=== PATIENT | male | born 1955 | race Caucasian/White ===

== ENCOUNTER 2016-11-16 17:25 | Emergency (ER) | payer OTHER ==
[~2016-11-16] VITALS: Ht 172.7 cm; Wt 51.3 kg
[2016-11-16 18:52] LABS: Basophils # (auto) 0 uL; Eosinophils # (auto) 0 uL; Hematocrit 43.7 % (41.0-53.0); Hemoglobin 14.5 g/dL (13.5-17.5); Lymphocytes # (auto) 0.8 uL; Lymphocytes % (auto) 5.4 % (10.0-50.0); Mean Corpuscular Hemoglobin 29.6 pg (28.0-32.0); Mean Corpuscular Hgb Conc. 33.1 g/dL (32.0-36.0); Mean Corpuscular Volume 89.6 fL (80.0-100.0); Mean Platelet Volume 8.3 fL (7.4-10.4); Monocytes # (auto) 0.5 uL; Monocytes % (auto) 3.5 % (0.0-12.0); Neutrophils # (auto) 12.8 uL; Neutrophils % (auto) 91.1 % (37.0-80.0); Platelet Count (auto) 292 10^3/uL (140-450); Red Cell Distribution Width 13.9 % (11.6-16.0); White Blood Cell 14.1 10^3/uL (4.4-10.8)
[2016-11-16 19:08] LABS: Albumin 4.1 g/dL (3.4-5.0); BUN/Creatinine Ratio 14.4; Calcium 8.7 mg/dL (8.5-10.1); Potassium 3.7 mmol/L (3.5-5.1)
[2016-11-16 19:11] LABS: Total Protein 7.4 g/dL (6.4-8.2)
[2016-11-16 20:07] LABS: Urine Bilirubin Negative (Negative); Urine Color Yellow (Yellow); Urine Glucose Normal (Normal); Urine Ketone Negative (Negative); Urine Nitrite Negative (Negative); Urine RBC 8 /hpf (0 - 3); Urine Squamous Epithelial Cell FEW /hpf (<5); Urine Urobilinogen Normal (Negative)
[2016-11-16 20:38] LABS: Urine Blood 1+ /uL (Negative)
[2016-11-16 22:30] VITALS: BP 115/74
[2016-11-16] MEDS ORDERED: MORPHINE SULF INJ 2 MG/ML SYRINGE 1ML IV ONE (22:30)
== END 2016-11-16 23:12 | disposition home or self-care (01) ==
LOC: ER 17:38
DX: R33.9 Retention of urine, unspecified (principal); G89.29 Other chronic pain; M54.9 Dorsalgia, unspecified; G43.909 Migraine, unspecified, not intractable, without status migrainosus
CPT/HCPCS: 36415; 51702; 80053; 81001; 85025; 93005; 96374; 99285; J2270

== ENCOUNTER 2017-03-20 14:30 | Inpatient (IN) | payer OTHER ==
[~2017-03-20] VITALS: Ht 170.2 cm; Wt 65.8 kg
[2017-03-20] MEDS ORDERED: LIDOCAINE 1% HCL (LOCAL ANESTH.) INJ 20ML MDV ID ONE (16:15)
[2017-03-20 16:47] LABS: Basophils # (auto) 0 uL; Basophils % (auto) 0.3 % (0.0-2.0); CONDITION Y; Eosinophils # (auto) 0 uL; Eosinophils % (auto) 0.1 % (0.0-7.0); Hematocrit 41.7 % (41.0-53.0); Hemoglobin 13.9 g/dL (13.5-17.5); Lymphocytes # (auto) 0.9 uL; Lymphocytes % (auto) 5.7 % (10.0-50.0); Mean Corpuscular Hemoglobin 30.1 pg (28.0-32.0); Mean Corpuscular Hgb Conc. 33.3 g/dL (32.0-36.0); Mean Corpuscular Volume 90.6 fL (80.0-100.0); Mean Platelet Volume 8.7 fL (7.4-10.4); Monocytes # (auto) 0.7 uL; Monocytes % (auto) 4.3 % (0.0-12.0); Neutrophils # (auto) 13.6 uL; Neutrophils % (auto) 89.6 % (37.0-80.0); Platelet Count (auto) 206 10^3/uL (140-450); Red Cell Distribution Width 13.4 % (11.6-16.0); White Blood Cell 15.2 10^3/uL (4.4-10.8)
[2017-03-20 16:57] LABS: Albumin 3.4 g/dL (3.4-5.0); Alkaline Phosphatase 77 U/L (45-117); Anion Gap 6 (5-15); Aspartate Aminotransferase 23 U/L (15-37); BUN/Creatinine Ratio 16.3; Bilirubin, Total 1.7 mg/dL (0.2-1.0); Blood Urea Nitrogen 14 mg/dL (7-18); Calcium 8.3 mg/dL (8.5-10.1); Carbon Dioxide 26 mmol/L (21-32); Chloride 104 mmol/L (98-107); GFR African American 117 mL/min; GFR Non-African American 97 mL/min; Glucose 107 mg/dL (74-106); Potassium 3.8 mmol/L (3.5-5.1); Sodium 136 mmol/L (136-145); Total Protein 6.5 g/dL (6.4-8.2)
[2017-03-20] MEDS ORDERED: MORPHINE SULFATE 4 MG/ML SYRG IV ONE (18:15)
[2017-03-20] MEDS ORDERED: ONDANSETRON HCL 4 MG/2 ML VIAL IV ONE (18:15)
[2017-03-20] MEDS ORDERED: NITROGLYCERIN 0.4 MG SL TAB SL PRN (19:00)
[2017-03-20] MEDS ORDERED: MORPHINE SULF INJ 2 MG/ML SYRINGE 1ML IV PRN (19:00)
[2017-03-20 19:24] LABS: INR 1.05 (0.9-1.15); Prothrombin Time 11.4 sec (9.37-12.3)
[2017-03-20] MEDS ORDERED: LORazepam 0.5 MG TAB PO PRN (20:45)
[2017-03-20 21:20] VITALS: BP 107/56
[2017-03-20] MEDS ORDERED: SODIUM CHLORIDE 0.9% 1,000 ML IV SCH (21:30)
[2017-03-21] MEDS ORDERED: PANTOPRAZOLE 40 MG TAB PO SCH (10:00)
[2017-03-21] MEDS ORDERED: ENOXAPARIN SOD 40 MG/0.4 ML SYRINGE SC SCH (10:00)
== END 2017-03-20 21:14 | disposition left against medical advice (07) | DRG 312 ==
LOC: EDBD 14:30 → ER 14:42 → TELE 14:43
PROVIDERS: ADMIT Nurse Practitioner Acute Care; ATTEND Nurse Practitioner Acute Care
DX: R55 Syncope and collapse (principal); I70.0 Atherosclerosis of aorta; D72.829 Elevated white blood cell count, unspecified; S01.81XA Laceration without foreign body of other part of head, initial encounter; M54.9 Dorsalgia, unspecified; G89.29 Other chronic pain
CPT/HCPCS: 12011; 36415; 70450; 71010; 74176; 80053; 82962; 83735; 84484; 85025; 85379; 85610; 85730; 93005; 94761; 96374; 96375; J2001; J2405

== ENCOUNTER 2022-08-26 12:22 | Inpatient (IN) | payer OTHER ==
[~2022-08-26] VITALS: Ht 170.2 cm; Wt 58.3 kg
[2022-08-26 13:04] LABS: Basophils # (auto) 0 10 ^3/uL (0-0.2); Basophils % (auto) 0.2 % (0.0-2.0); Eosinophils # (auto) 0 10 ^3/uL (0-0.8); Eosinophils % (auto) 0.1 % (0.0-7.0); Hemoglobin 13.5 g/dL (13.5-17.5); Lymphocytes # (auto) 0.7 10 ^3/uL (0.4-5.4); Lymphocytes % (auto) 5.1 % (10.0-50.0); Mean Corpuscular Hemoglobin 29.3 pg (28.0-32.0); Monocytes # (auto) 1.4 10 ^3/uL (0-1.3); Monocytes % (auto) 10.7 % (0.0-12.0); Neutrophils % (auto) 83.9 % (37.0-80.0); Nucleated Red Blood Cells % 0.1 %; Red Cell Distribution Width 13.7 % (11.8-14.3); White Blood Cell 13.1 10^3/uL (4.4-10.8)
[2022-08-26 13:20] LABS: Albumin 3.1 g/dL (3.4-5.0); Calcium 9.4 mg/dL (8.5-10.1); Potassium 4.4 mmol/L (3.5-5.1)
[2022-08-26 13:23] LABS: Bilirubin, Total 1.7 mg/dL (0.2-1.0); Total Protein 6.8 g/dL (6.4-8.2)
[2022-08-26] MEDS: SODIUM CHLORIDE 0.9% 1,000 ML IV SCH (14:15)
[2022-08-26] MEDS ORDERED: IOHEXOL 350 MG/ML 100ML IJ ONE (14:39)
[2022-08-26] MEDS ORDERED: cefTRIAXone 1GM/50ML D5W 50 ML IV ONE (14:45)
[2022-08-26] MEDS ORDERED: PANTOPRAZOLE 40 MG/10 ML VIAL INJ IV ONE (14:45)
[2022-08-26 15:02] LABS: Cholesterol 182 mg/dL (< 200); Triglycerides 64 mg/dL (< 150)
[2022-08-26 15:05] LABS: HDL Cholesterol 53 mg/dL (40-59); LDL Cholesterol 123 mg/dL (< 100)
[2022-08-26] MEDS ORDERED: MORP15TA PO (15:07)
[2022-08-26] MEDS ORDERED: MORP1TAB14 PO (15:07)
[2022-08-26 15:45] LABS: Urine Specific Gravity 1.027 (1.001-1.035)
[2022-08-26] MEDS ORDERED: MORPHINE SULFATE 4 MG/ML SYR/VIAL IV ONE (15:45)
[2022-08-26] MEDS ORDERED: ONDANSETRON HCL 4 MG/2 ML VIAL IV ONE (15:45)
[2022-08-26 15:46] LABS: Urine Blood Normal /uL (Negative)
[2022-08-26] MEDS ORDERED: KETOROLAC TROMETH 30 MG/ML 1ML VIAL IV ONE (18:15)
[2022-08-26] MEDS ORDERED: HYDROmorphone HCL 2 MG/ML VL/or syr IV ONE (18:15)
[2022-08-26 22:12] VITALS: BP 96/58
[2022-08-26 22:21] VITALS: BP 96/58
[2022-08-26 22:22] VITALS: BP 96/58
[2022-08-26] MEDS: ASCORBIC ACID 500 MG TAB PO SCH (23:22)
[2022-08-27] MEDS: MORPHINE SULFATE 4 MG/ML SYR/VIAL IV PRN ×2 (04:19→10:53)
[2022-08-27] MEDS: SODIUM CHLORIDE 0.9% 1,000 ML IV SCH ×2 (04:33→18:25)
[2022-08-27 05:00] VITALS: BP 115/68
[2022-08-27] MEDS ORDERED: SUMAtriptan SUCCINATE 25 MG TAB PO ONE (05:00)
[2022-08-27 06:51] LABS: Basophils # (auto) 0 10 ^3/uL (0-0.2); Basophils % (auto) 0.4 % (0.0-2.0); Eosinophils # (auto) 0 10 ^3/uL (0-0.8); Eosinophils % (auto) 0.1 % (0.0-7.0); Hematocrit 36.3 % (41.0-53.0); Hemoglobin 12.2 g/dL (13.5-17.5); Lymphocytes # (auto) 0.6 10 ^3/uL (0.4-5.4); Mean Corpuscular Hemoglobin 30.7 pg (28.0-32.0); Mean Corpuscular Hgb Conc. 33.7 g/dL (32.0-36.0); Mean Corpuscular Volume 90.9 fL (80.0-100.0); Monocytes # (auto) 1.5 10 ^3/uL (0-1.3); Monocytes % (auto) 12.2 % (0.0-12.0); Neutrophils % (auto) 82.3 % (37.0-80.0); Red Blood Cells 3.99 10^6/uL (4.5-5.90); Red Cell Distribution Width 13.8 % (11.8-14.3); White Blood Cell 12.2 10^3/uL (4.4-10.8)
[2022-08-27 07:03] LABS: Albumin 2.8 g/dL (3.4-5.0); Calcium 8.9 mg/dL (8.5-10.1); Potassium 4.5 mmol/L (3.5-5.1)
[2022-08-27 07:09] LABS: BUN/Creatinine Ratio 22.3; Bilirubin, Total 1.6 mg/dL (0.2-1.0); Total Protein 5.9 g/dL (6.4-8.2)
[2022-08-27 08:00] VITALS: BP 119/62
[2022-08-27 09:00] VITALS: BP 112/69
[2022-08-27] MEDS: ENOXAPARIN SOD 40 MG/0.4 ML SYRINGE SC SCH (10:04)
[2022-08-27] MEDS: cefTRIAXone 1GM/50ML D5W 50 ML IV SCH (10:04)
[2022-08-27] MEDS: ZINC SULFATE 220mg CAP or TAB PO SCH (10:04)
[2022-08-27] MEDS: MULTIPLE VITAMIN TAB PO SCH (10:04)
[2022-08-27] MEDS: PANTOPRAZOLE 40 MG/10 ML VIAL INJ IV SCH (10:04)
[2022-08-27] MEDS: ASCORBIC ACID 500 MG TAB PO SCH ×2 (10:04→22:50)
[2022-08-27 13:00] VITALS: BP 119/62
[2022-08-27 15:22] LABS: INR 1.06 (0.9-1.15); Partial Thromboplastin Time 31.4 sec (24.6-33.4)
[2022-08-27] MEDS: metroNIDAZOLE 500MG/100ML 100 ML IV SCH ×2 (16:29→22:53)
[2022-08-27 17:00] VITALS: BP 100/49
[2022-08-27] MEDS: HYDROmorphone HCL 2 MG/ML VL/or syr IV SCH (18:25)
[2022-08-27 22:00] VITALS: BP 123/68
[2022-08-28] MEDS: HYDROmorphone HCL 2 MG/ML VL/or syr IV SCH ×4 (00:45→19:19)
[2022-08-28] MEDS ORDERED: TEMAZEPAM 15 MG CAP PO ONE (01:45)
[2022-08-28 05:00] VITALS: BP 97/69
[2022-08-28] MEDS: SODIUM CHLORIDE 0.9% 1,000 ML IV SCH ×2 (05:37→22:36)
[2022-08-28] MEDS: metroNIDAZOLE 500MG/100ML 100 ML IV SCH ×3 (08:49→22:31)
[2022-08-28 08:59] VITALS: BP_SYST 107; BP_SYST 113; BP_DIAS 52; BP_DIAS 68
[2022-08-28] MEDS: cefTRIAXone 1GM/50ML D5W 50 ML IV SCH (09:14)
[2022-08-28] MEDS: PANTOPRAZOLE 40 MG/10 ML VIAL INJ IV SCH (10:00)
[2022-08-28] MEDS: ASCORBIC ACID 500 MG TAB PO SCH ×2 (10:37→22:31)
[2022-08-28] MEDS: KETOROLAC TROMETH 30 MG/ML 1ML VIAL IV PRN (10:37)
[2022-08-28] MEDS: MULTIPLE VITAMIN TAB PO SCH (10:37)
[2022-08-28] MEDS: ZINC SULFATE 220mg CAP or TAB PO SCH (10:37)
[2022-08-28] MEDS: ENOXAPARIN SOD 40 MG/0.4 ML SYRINGE SC SCH (10:47)
[2022-08-28 13:00] VITALS: BP 127/79
[2022-08-28] MEDS: ALPRAZolam 0.5 MG TAB PO SCH ×2 (14:11→22:31)
[2022-08-28 17:00] VITALS: BP 102/58
[2022-08-28 22:00] VITALS: BP_SYST 116; BP_SYST 129; BP_DIAS 67; BP_DIAS 79
[2022-08-29] MEDS: HYDROmorphone HCL 2 MG/ML VL/or syr IV SCH ×4 (00:53→18:39)
[2022-08-29] MEDS: KETOROLAC TROMETH 30 MG/ML 1ML VIAL IV PRN ×2 (04:44→21:35)
[2022-08-29 05:00] VITALS: BP 119/72
[2022-08-29] MEDS: ALPRAZolam 0.5 MG TAB PO SCH ×3 (06:00→21:48)
[2022-08-29] MEDS: metroNIDAZOLE 500MG/100ML 100 ML IV SCH ×3 (06:38→21:35)
[2022-08-29 08:06] VITALS: BP 107/58
[2022-08-29] MEDS: cefTRIAXone 1GM/50ML D5W 50 ML IV SCH (09:27)
[2022-08-29] MEDS: ENOXAPARIN SOD 40 MG/0.4 ML SYRINGE SC SCH (09:38)
[2022-08-29] MEDS: ZINC SULFATE 220mg CAP or TAB PO SCH (09:38)
[2022-08-29] MEDS: MULTIPLE VITAMIN TAB PO SCH (09:38)
[2022-08-29] MEDS: PANTOPRAZOLE 40 MG/10 ML VIAL INJ IV SCH (09:38)
[2022-08-29] MEDS: ASCORBIC ACID 500 MG TAB PO SCH ×2 (09:39→21:35)
[2022-08-29] MEDS ORDERED: LOPERAMIDE HCL 2 MG CAP/TAB PO ONE (12:00)
[2022-08-29 12:10] VITALS: BP 137/75
[2022-08-29 16:32] VITALS: BP 110/64
[2022-08-29] MEDS: SODIUM CHLORIDE 0.9% 1,000 ML IV SCH (18:39)
[2022-08-29 22:00] VITALS: BP 111/57
[2022-08-30] MEDS: HYDROmorphone HCL 2 MG/ML VL/or syr IV SCH ×5 (00:24→19:26)
[2022-08-30] MEDS: SODIUM CHLORIDE 0.9% 1,000 ML IV SCH ×2 (04:03→14:24)
[2022-08-30 05:00] VITALS: BP 108/55
[2022-08-30] MEDS: ALPRAZolam 0.5 MG TAB PO SCH (06:00)
[2022-08-30] MEDS: metroNIDAZOLE 500MG/100ML 100 ML IV SCH ×3 (06:32→22:04)
[2022-08-30] MEDS: cefTRIAXone 1GM/50ML D5W 50 ML IV SCH (09:21)
[2022-08-30 10:01] VITALS: BP 94/53
[2022-08-30] MEDS: ASCORBIC ACID 500 MG TAB PO SCH ×2 (10:43→22:04)
[2022-08-30] MEDS: ZINC SULFATE 220mg CAP or TAB PO SCH (10:44)
[2022-08-30] MEDS: ENOXAPARIN SOD 40 MG/0.4 ML SYRINGE SC SCH (10:44)
[2022-08-30] MEDS: PANTOPRAZOLE 40 MG/10 ML VIAL INJ IV SCH (10:44)
[2022-08-30] MEDS: MULTIPLE VITAMIN TAB PO SCH (10:44)
[2022-08-30] MEDS: LOPERAMIDE HCL 2 MG CAP/TAB PO PRN (10:51)
[2022-08-30 12:50] VITALS: BP 112/64
[2022-08-30 17:00] VITALS: BP_SYST 113; BP_SYST 139; BP_DIAS 59; BP_DIAS 76
[2022-08-30 22:00] VITALS: BP 103/57
[2022-08-30] MEDS: KETOROLAC TROMETH 30 MG/ML 1ML VIAL IV PRN (22:04)
[2022-08-31] VITALS (10 sets, daily range): BP systolic 99–119; BP diastolic 46–75
[2022-08-31] MEDS: KETOROLAC TROMETH 30 MG/ML 1ML VIAL IV PRN ×3 (04:50→21:40)
[2022-08-31] MEDS: HYDROmorphone HCL 2 MG/ML VL/or syr IV SCH ×3 (06:12→17:47)
[2022-08-31] MEDS: metroNIDAZOLE 500MG/100ML 100 ML IV SCH ×3 (06:13→21:40)
[2022-08-31] MEDS: PANTOPRAZOLE 40 MG/10 ML VIAL INJ IV SCH (08:54)
[2022-08-31] MEDS: cefTRIAXone 1GM/50ML D5W 50 ML IV SCH (08:54)
[2022-08-31] MEDS: ENOXAPARIN SOD 40 MG/0.4 ML SYRINGE SC SCH (08:54)
[2022-08-31] MEDS: MULTIPLE VITAMIN TAB PO SCH (08:55)
[2022-08-31] MEDS: ASCORBIC ACID 500 MG TAB PO SCH (08:55)
[2022-08-31] MEDS: SODIUM CHLORIDE 0.9% 1,000 ML IV SCH ×2 (08:58→22:57)
[2022-08-31] MEDS: ZINC SULFATE 220mg CAP or TAB PO SCH (10:05)
[2022-08-31 10:18] LABS: Basophils # (auto) 0 10 ^3/uL (0-0.2); Basophils % (auto) 0.5 % (0.0-2.0); Eosinophils # (auto) 0 10 ^3/uL (0-0.8); Eosinophils % (auto) 0.4 % (0.0-7.0); Hematocrit 35.8 % (41.0-53.0); Hemoglobin 12.2 g/dL (13.5-17.5); Lymphocytes # (auto) 0.7 10 ^3/uL (0.4-5.4); Lymphocytes % (auto) 7.7 % (10.0-50.0); Mean Corpuscular Hgb Conc. 34.1 g/dL (32.0-36.0); Mean Corpuscular Volume 88.1 fL (80.0-100.0); Monocytes # (auto) 1.1 10 ^3/uL (0-1.3); Monocytes % (auto) 11.7 % (0.0-12.0); Neutrophils # (auto) 7.3 10 ^3/uL (1.6-8.6); Neutrophils % (auto) 79.7 % (37.0-80.0); Red Blood Cells 4.06 10^6/uL (4.5-5.90); Red Cell Distribution Width 13.8 % (11.8-14.3); White Blood Cell 9.2 10^3/uL (4.4-10.8)
[2022-08-31 11:26] LABS: INR 1.18 (0.9-1.15); Partial Thromboplastin Time 28.4 sec (24.6-33.4)
[2022-08-31] MEDS: Ensure HIGH Protein Chocolate 8oz Bottle PO SCH ×2 (12:00→17:47)
[2022-08-31] MEDS ORDERED: GELATIN 1 SPONGE SIZE 100 TOP ONE (12:52)
[2022-08-31] MEDS ORDERED: LIDOCAINE 2% (LOCAL ANESTH.) PF 5ml SDV ONE (12:52)
[2022-08-31] MEDS ORDERED: fentaNYL CITRATE 100 MCG/2 ML VL IV ONE (13:15)
[2022-08-31] MEDS ORDERED: MIDAZOLAM HCL 2MG/2ML 2ml VIAL (1mg/ml) IV ONE (13:15)
[2022-08-31 14:46] LABS: Hepatitis A Ab IgM Negative; Hepatitis C Antibody Negative (Negative)
[2022-08-31 14:47] LABS: Hepatitis B Core IgM Negative
[2022-08-31] MEDS ORDERED: SUMA100T2 PO (15:09)
[2022-08-31] MEDS ORDERED: MORP1TAB13 PO (15:09)
[2022-08-31] MEDS ORDERED: LIDO5PAD8 EX (15:09)
[2022-08-31] MEDS ORDERED: TIZA4TAB9 PO (15:09)
[2022-08-31] MEDS: LOPERAMIDE HCL 2 MG CAP/TAB PO PRN (17:54)
[2022-08-31] MEDS: ALPRAZolam 0.25 MG TAB PO PRN ×2 (20:37)
[2022-09-01] MEDS: HYDROmorphone HCL 2 MG/ML VL/or syr IV SCH ×3 (00:03→12:00)
[2022-09-01] MEDS: KETOROLAC TROMETH 30 MG/ML 1ML VIAL IV PRN ×2 (03:48→09:51)
[2022-09-01 05:00] VITALS: BP 118/62
[2022-09-01] MEDS: metroNIDAZOLE 500MG/100ML 100 ML IV SCH ×2 (06:00→14:00)
[2022-09-01 07:27] LABS: Albumin 2.3 g/dL (3.4-5.0); Calcium 8.4 mg/dL (8.5-10.1); Potassium 3.8 mmol/L (3.5-5.1)
[2022-09-01 07:31] LABS: Basophils # (auto) 0 10 ^3/uL (0-0.2); Basophils % (auto) 0.4 % (0.0-2.0); Bilirubin, Total 1.2 mg/dL (0.2-1.0); Eosinophils # (auto) 0.1 10 ^3/uL (0-0.8); Eosinophils % (auto) 0.5 % (0.0-7.0); Hematocrit 35.1 % (41.0-53.0); Hemoglobin 11.9 g/dL (13.5-17.5); Lymphocytes # (auto) 0.7 10 ^3/uL (0.4-5.4); Lymphocytes % (auto) 6.8 % (10.0-50.0); Mean Corpuscular Hemoglobin 31.3 pg (28.0-32.0); Mean Corpuscular Hgb Conc. 33.8 g/dL (32.0-36.0); Mean Corpuscular Volume 92.5 fL (80.0-100.0); Monocytes # (auto) 1.4 10 ^3/uL (0-1.3); Monocytes % (auto) 12.7 % (0.0-12.0); Neutrophils # (auto) 8.6 10 ^3/uL (1.6-8.6); Neutrophils % (auto) 79.6 % (37.0-80.0); Red Blood Cells 3.79 10^6/uL (4.5-5.90); Red Cell Distribution Width 14.3 % (11.8-14.3); Total Protein 5.2 g/dL (6.4-8.2); White Blood Cell 10.8 10^3/uL (4.4-10.8)
[2022-09-01] MEDS: Ensure HIGH Protein Chocolate 8oz Bottle PO SCH ×2 (08:30→14:11)
[2022-09-01 09:00] VITALS: BP 96/57
[2022-09-01] MEDS: cefTRIAXone 1GM/50ML D5W 50 ML IV SCH (09:50)
[2022-09-01] MEDS: ENOXAPARIN SOD 40 MG/0.4 ML SYRINGE SC SCH (09:51)
[2022-09-01] MEDS: MULTIPLE VITAMIN TAB PO SCH (09:51)
[2022-09-01] MEDS: PANTOPRAZOLE 40 MG/10 ML VIAL INJ IV SCH (09:51)
[2022-09-01 12:00] VITALS: BP 100/61
[2022-09-01] MEDS ORDERED: METR500T PO (12:06)
[2022-09-01] MEDS ORDERED: LEVO500T31 PO (12:06)
[2022-09-01] MEDS ORDERED: PANT40TA2 PO (12:06)
== END 2022-09-01 14:18 | disposition home or self-care (01) | DRG 435 ==
LOC: ER 12:22 → OVERFLOW 14:11 → WEST WING 21:26
PROVIDERS: ADMIT Nurse Practitioner Family; ATTEND Internal Medicine
PROC: 0FB13ZX Excision of Right Lobe Liver, Percutaneous Approach, Diagnostic (ICD-10-PCS; principal; 2022-09-01)
DX: C78.7 Secondary malignant neoplasm of liver and intrahepatic bile duct (principal); E43 Unspecified severe protein-calorie malnutrition; C77.2 Secondary and unspecified malignant neoplasm of intra-abdominal lymph nodes; E87.1 Hypo-osmolality and hyponatremia; R18.8 Other ascites; K80.00 Calculus of gallbladder with acute cholecystitis without obstruction; Z20.822 Contact with and (suspected) exposure to COVID-19; R73.9 Hyperglycemia, unspecified; K82.8 Other specified diseases of gallbladder; G89.29 Other chronic pain; K80.20 Calculus of gallbladder without cholecystitis without obstruction; N43.3 Hydrocele, unspecified; N20.0 Calculus of kidney; R59.0 Localized enlarged lymph nodes; K72.90 Hepatic failure, unspecified without coma; Z68.20 Body mass index [BMI] 20.0-20.9, adult
CPT/HCPCS: 10005; 36415; 70470; 71045; 71275; 74150; 74176; 74181; 76700; 76942; 77012; 78226; 80053; 80061; 80074; 81003; 82105; 82140; 82378; 83036; 83690; 83880; 84443; 84484; 85025; 85048; 85379; 85610; 85730; 86301; 87040; 87045; 87426; 87427; 87493; 87804; 93005; 96365; 96375; C9113; G0378; J0696; J1885; J2001; J2250; J2405; J3490

== ENCOUNTER 2022-10-01 10:51 | Emergency (ER) | payer OTHER ==
[~2022-10-01] VITALS: Ht 165.1 cm; Wt 40.8 kg
[~2022-10-01 10:51] MED LIST: LEVO500T31 PO; LIDO5PAD8 EX; METR500T PO; MORP15TA PO; MORP1TAB13 PO; PANT40TA2 PO; SUMA100T2 PO; TIZA4TAB9 PO
[2022-10-01] MEDS ORDERED: SODIUM BICARBONATE 8.4% INJ 50ML SYRINGE IV ONE ×2 (11:03)
[2022-10-01] MEDS ORDERED: DOPamine 1600mCg/ml 400MG/250ml NSorD5 KIT/BAG IV ONE (11:03)
[2022-10-01] MEDS ORDERED: ATROPINE SULF 1 MG/10ml SYR IM ONE (11:03)
[2022-10-01] MEDS ORDERED: EPINEPHrine HCL 1 MG/10 ML SYRG IV ONE ×2 (11:03)
[2022-10-01] MEDS ORDERED: NOREPINEPHRINE 8 MG/250ML KIT 250 ML IV ONE (11:13)
[2022-10-01 11:26] VITALS: BP 33/0
[2022-10-01] MEDS ORDERED: EPINEPHrine HCL 250 ML IV SCH (11:45)
[2022-10-01] MEDS ORDERED: DOPamine 1600MCG/ML D5W 250 ML IV SCH (11:45)
[2022-10-01] MEDS ORDERED: ATROPINE SULF 1 MG/10ml SYR IV ONE (11:45)
[2022-10-01] MEDS ORDERED: NOREPINEPHRINE 8 MG/250ML KIT 250 ML IV SCH (11:45)
[2022-10-01] MEDS ORDERED: DOPamine 1600MCG/ML D5W 250 ML IV ONE (11:45)
[2022-10-01 12:13] LABS: Albumin 1.3 g/dL (3.4-5.0); BUN/Creatinine Ratio 23.7; Calcium 7.2 mg/dL (8.5-10.1); Magnesium 3.5 mg/dL (1.6-2.6)
[2022-10-01 12:15] LABS: Bilirubin, Total 1.7 mg/dL (0.2-1.0); Total Protein 3.8 g/dL (6.4-8.2)
[2022-10-01 12:20] LABS: Potassium 9.7 mmol/L (3.5-5.1)
[2022-10-01 12:27] LABS: Red Blood Cells 2.81 10^6/uL (4.5-5.90)
[2022-10-01 12:28] LABS: Basophils # (auto) 0 10 ^3/uL (0-0.2); Basophils % (auto) 0.2 % (0.0-2.0); Eosinophils # (auto) 0 10 ^3/uL (0-0.8); Eosinophils % (auto) 1.6 % (0.0-7.0); Hematocrit 27.1 % (41.0-53.0); Hemoglobin 8.5 g/dL (13.5-17.5); Lymphocytes # (auto) 0.3 10 ^3/uL (0.4-5.4); Mean Corpuscular Hemoglobin 30.3 pg (28.0-32.0); Mean Corpuscular Hgb Conc. 31.5 g/dL (32.0-36.0); Mean Corpuscular Volume 96.4 fL (80.0-100.0); Monocytes # (auto) 0 10 ^3/uL (0-1.3); Monocytes % (auto) 1.5 % (0.0-12.0); Neutrophils # (auto) 0.1 10 ^3/uL (1.6-8.6); Neutrophils % (auto) 25.5 % (37.0-80.0); Nucleated Red Blood Cells % 1.5 %; Red Cell Distribution Width 16.6 % (11.8-14.3)
[2022-10-01 12:45] LABS: Lymphocytes % (auto) 71.2 % (10.0-50.0)
[2022-10-01 12:49] LABS: White Blood Cell 0.5 10^3/uL (4.4-10.8)
[2022-10-01 15:10] LABS: INR 1.94 (0.9-1.15); Partial Thromboplastin Time 52.7 sec (24.6-33.4)
== END 2022-10-01 13:01 ==
LOC: EDBD 10:51 → ER 11:02
DX: I46.9 Cardiac arrest, cause unspecified (principal); I21.3 ST elevation (STEMI) myocardial infarction of unspecified site
CPT/HCPCS: 31500; 36415; 36556; 36600; 71045; 80053; 82805; 83735; 84484; 85025; 85610; 85730; 92950; 93005; 96374; 99291; J0171; J1265; 94002